=== PATIENT | male | born 1980 | race Asian ===

== ENCOUNTER 2019-02-16 11:23 | Emergency (ER) | payer MEDICAID ==
[~2019-02-16] VITALS: Ht 180.3 cm; Wt 68.2 kg
[2019-02-16] MEDS ORDERED: ACETAMINOPHEN 500 MG TABLET PO ONE (12:00)
[2019-02-16] MEDS ORDERED: IBUPROFEN 600 MG TABLET PO ONE (13:15)
[2019-02-16] MEDS ORDERED: BACITRACIN 0.9 GM PACKET OINTMENT TP ONE (13:30)
[2019-02-16 14:13] VITALS: BP 118/78
== END 2019-02-16 14:13 | disposition home or self-care (01) ==
LOC: EMS 11:26
DX: S43.141A Inferior dislocation of right acromioclavicular joint, initial encounter (principal); S60.512A Abrasion of left hand, initial encounter; S60.511A Abrasion of right hand, initial encounter; S80.212A Abrasion, left knee, initial encounter; S80.211A Abrasion, right knee, initial encounter; S70.211A Abrasion, right hip, initial encounter; S50.311A Abrasion of right elbow, initial encounter; F12.90 Cannabis use, unspecified, uncomplicated; F17.210 Nicotine dependence, cigarettes, uncomplicated; V00.131A Fall from skateboard, initial encounter; Y93.51 Activity, roller skating (inline) and skateboarding; Y92.89 Other specified places as the place of occurrence of the external cause; Y99.8 Other external cause status